=== PATIENT | female | born 1940 | race Caucasian/White ===

== ENCOUNTER 2024-01-29 09:25 | Emergency (ER) | payer MEDICARE, BC, SELFPAY ==
[2024-01-29 09:35] VITALS: BP 115/57
--- NOTE | 2024-01-29 09:42 | ED.GENMED ---
History of Present Illness
General
Chief Complaint: Fall
Time Seen by Provider: 01/29/24 09:31
History of Present Illness
History of Present Illness:
Patient presents to the emergency department after fall. She is an 83-year-old female with a history of severe aortic stenosis, uncontrolled diabetes, coronary artery disease. She presents after a mechanical fall. She reports that her daughter
was helping her transfer from the toilet to the shower. She reports that the shower chair broke and she fell to the floor of the shower. She denies getting injured. She reports that her daughter was unable to lift her up and called the medics.
Patient currently has no complaints. She denies pain anywhere. She denies shortness of breath. She denies injury. She wants to go home
Past History
Past History
ED Past Medical History: CHF and IDDM
ED Past Surgical History: Orthopedic
Social History
Tobacco: Non-smoker
Alcohol: None
Drug: None
Living: with family
Employment: Retired
Phy Exam
Physical Exam
Physical Exam:
GENERAL APPEARANCE: NAD, chronically ill appearing
EYES lids/conjunctiva normal
EARS/NOSE/THROAT Mucous membranes moist, uvula midline without oral pharyngeal erythema, exudate or swelling
HEAD/NECK normocephalic atraumatic, neck is supple.
RESPIRATORY respiratory effort normal, speaks in full sentences, no accessory muscle use. Lungs clear to auscultation without rhonchi, wheezes, rales
CARDIAC Regular rate and rhythm, no edema.
ABDOMINAL Soft, ND/NT. No pulsatile masses on exam, rebound tenderness
MUSCLES/EXTREMITIES No abnormal range of motion, no swelling. no bruising
SKIN Warm, pink and dry. No rashes
NEUROLOGICAL Speech is clear and appropriate. Normal level of consciousness. 5/5 strength in all extremities.
PSYCH Normal mood and affect. Judgement/competence is appropriate
Course
Orders/Labs/Results
Orders:
Orders
01/29/24 10:21
Pt Eval And Treat Urgent
Treatment: ambulate, assess for home safety.
Activity Level: As Tolerated
Vital Signs
Initial and Last Documented VS:
Initial Vital Signs
Temp Pulse Resp BP Pulse Ox
97.6 F 59 16 115/57 97
01/29/24 09:35 01/29/24 09:35 01/29/24 09:35 01/29/24 09:35 01/29/24 09:35
Last Documented Vital Signs
Temp Pulse Resp BP Pulse Ox
97.6 F 59 16 115/57 94
01/29/24 09:35 01/29/24 09:35 01/29/24 09:35 01/29/24 09:35 01/29/24 10:15
*Critical Care Note
Total Time (30-74mins, 75-104mins- exclusive of procedures): Not Applicable
Update Note
Update Note:
Patient's daughter arrived to the emergency department. I discussed with the history with her. She helps take care of her mother at home. The patient currently has no complaints however the daughter is worried about her mobility. We will consult
physical therapy to work with the patient to ensure that patient is at her baseline mobility status before sending her home.
Patient was evaluated by physical therapy. She was able to stand up to a walker and lift both of her legs up. She still denies any pain or symptoms and wants to go home. Daughter is in agreement with plan
ED Attending Note
-
Portions of this chart may have been created with voice recognition software.� Occasional wrong word or��sound alike� substitutions may have occurred due to the inherent limitations of voice recognition software.
Discharge Plan
Departure
Patient Disposition: Home (Routine Discharge)
Date of Disposition: 01/29/24
Time of Disposition: 10:52
Patient with high blood pressure during this ER visit?: No
Discharge Problem:
Fall
Instructions: Preventing falls in adults
Prescriptions:
No Action
gabapentin 400 mg capsule
400 mg PO TID
aspirin 81 mg Tablet,Delayed Release (Dr/Ec)
81 mg PO DAILY
acetaminophen 500 mg Tablet
500 mg PO HS
levothyroxine 125 mcg tablet
125 mcg PO DAILY
timolol maleate 0.5 % drops
1 drp BOTH EYES DAILY
ondansetron 4 mg tablet,disintegrating
4 mg translingual BIDPRN PRN (Reason: nausea/vomiting)
furosemide [Lasix] 40 mg tablet
40 mg PO DAILY Qty: 30 0RF
Rx Instructions:
alternates with 20 mg every other day
Levemir FlexPen 100 unit/mL (3 mL) Insulin Pen
40 unit SC QPM
nitroglycerin 0.4 mg Tablet, Sublingual
0.4 mg sublingual [id number] PRN (Reason: Chest pain) Qty: 25 4RF
metoprolol succinate 25 mg Tablet Extended Release 24 Hr
25 mg PO DAILY Qty: 1 0RF
insulin glargine [Basaglar KwikPen U-100 Insulin] 100 unit/mL (3 mL) Insulin Pen
40 unit SC DAILY
Referrals:
UNKNOWN - PT DOES,NOT KNOW [Family Provider] -
Interventions
Interventions:
*Risk Screen - Suicide Last Done: 01/29/24 09:36
*General Assessment Last Done: 01/29/24 11:30
*Neglect/Abuse Screening Last Done: 01/29/24 09:36
*ED COVID-19 Vaccine History Last Done: 01/29/24 11:30
ED-Musculoskeletal Assessment Last Done: 01/29/24 09:50
ED- Neurological Assessment Last Done: 01/29/24 09:50
ED-Skin Assessment Last Done: 01/29/24 09:50
Discharge Date and Time
Print Language: ITALIAN
[2024-01-29 10:49] VITALS: BP 105/62; PULSE 57; O2SAT 95
[2024-01-29 16:51] VITALS: BP 122/84
== END 2024-01-29 16:53 | disposition home or self-care (01) ==
LOC: EMR 09:25
PROVIDERS: EMERGENCY PHYSICIAN Emergency Medicine
DX: Z04.3 Encounter for examination and observation following other accident (principal); W07.XXXA Fall from chair, initial encounter; Y93.89 Activity, other specified; I25.10 Atherosclerotic heart disease of native coronary artery without angina pectoris; E11.9 Type 2 diabetes mellitus without complications; I35.0 Nonrheumatic aortic (valve) stenosis; I50.9 Heart failure, unspecified; Z79.4 Long term (current) use of insulin
CPT/HCPCS: 99283

== ENCOUNTER 2024-09-02 16:05 | Inpatient (IN) | payer MEDICARE, BC, SELFPAY ==
[2024-09-02 12:20] VITALS: BP 92/78
--- NOTE | 2024-09-02 12:48 | ED.GENMED ---
History of Present Illness
General
Chief Complaint: Skin Problem
Source: patient and family
Exam Limitations: none
Time Seen by Provider: 09/02/24 12:40
Nursing documentation reviewed up to this point in time: agreed with
History of Present Illness
History of Present Illness:
84-year-old female with a past medical history of hypertension, hyperlipidemia, CAD, CHF, aortic stenosis, diabetes, hypothyroidism who presents to the emergency room for evaluation of redness and swelling of the right lower extremity as well as a
wound on her right medial foot. Patient is accompanied by her daughter who helps with collateral history. Apparently swelling in the bilateral legs started to increase about 2 weeks ago. Daughter says that she increased patient's dose of Lasix
from 40 mg to 60 mg which helped a bit with the swelling in the left leg but right leg has remained swollen. She has developed a wound on the medial right foot. She has developed redness of the foot and ankle on the right. Was started on Keflex
by PCP and has been on 500 mg 3 times daily; she has 1 day remaining in this course of antibiotics but has not noticed any improvement in redness or swelling of the right leg which prompted ER visit. Patient has chronic dyspnea no worse than usual.
No fevers or chills. No other complaints reported.
Past History
Past History
ED Past Medical History: CHF and IDDM
ED Past Surgical History: Orthopedic
Social History
Tobacco: Non-smoker
Alcohol: None
Drug: None
Living: with family
Employment: Retired
Review of Systems
Review of Systems
All Other Systems: ROS reviewed and negative except as documented in HPI and ROS
Constitutional: Denies fever or chills
Respiratory: Denies trouble breathing (Chronic and unchanged)
Cardiac: Denies chest pain
Musculoskeletal: Reports edema
Skin: Reports other (Wound, redness)
Phy Exam
Physical Exam
Physical Exam:
General: Awake, alert; no acute distress
Head: Normocephalic, atraumatic
Eyes: Conjunctiva normal
Throat: Airway intact, handling secretions
Neck: Trachea midline, no JVD noted
Lungs: Clear to auscultation bilaterally, no wheezing, rales, rhonchi
Heart: Regular rate and rhythm, systolic murmur
Neuro: No gross deficits
Extremities: Patient has +2 pitting edema in the right lower extremity, trace edema left lower extremity; she has good pulses throughout specifically has strong femoral, popliteal, DP pulse in the right lower extremity; patient has wound medial
aspect of the right foot essentially overlying the medial aspect of the MTP joint�wound is superficial ulceration approximately 6 cm diameter; there is a wide area of erythema extending over essentially the entire dorsum of the right foot and some
slight streaks up towards the ankle/lower leg on the right; no skin changes or wounds noted on the left lower extremity
Scores
Heart Failure Risk
Heart Failure Risk Score: Not Applicable
Heart Score for Chest Pain Patients
STEMI patient?: Not applicable
Withdrawal Assessment of Alcohol
Withdrawal Assessment Completed?: Not applicable
Course
Orders/Labs/Results
Orders:
Orders
09/02/24 12:42
US Periph Venous LOWER Ext Joe Urgent
Comment:
Reason For Exam: b/l R>L swelling; RLE redness
09/02/24 13:32
CRP [C-Reactive Protein] Urgent
Complete Blood Count/With Diff Urgent
Comprehensive Metabolic Panel Urgent
ESR [Erythrocyte Sed Rate] Urgent
Lactate Level [Lactic Acid] Urgent
NT-proBNP Urgent
Blood Culture Q30M
FRANCIS Source: Blood/Venous
Specimen Description:
Blood Culture Q30M
FRANCIS Source: Blood/Venous
Specimen Description:
09/02/24 14:43
Piperacillin/Tazo 3.375 Gram [Zosyn] 3.375 gram in 50 ml IV NOW
Vancomycin [Vancocin] 2,000 mg 0.9% Sodium Chloride 500 ml [Nss] 500 ml IV NOW
Abnormal Lab Results
09/02/24
13:32
RBC 3.88 L 10^6/uL
(4.20-5.40)
Hgb 11.6 L g/dL
(12.0-16.0)
Hct 35.9 L %
(37.0-47.0)
MCHC 32.3 L g/dL
(33.0-37.0)
Lymphocytes % 14.3 L %
(20.5-51.1)
ESR 29 H mm/hour
(0-20)
Sodium 134 L mmol/L
(135-145)
Chloride 97 L mmol/L
(98-107)
Carbon Dioxide 31 H mmol/L
(22-30)
BUN 45 H mg/dl
(7-17)
Creatinine 1.3 H mg/dL
(0.6-1.0)
Glucose 270 H mg/dl
(70-99)
Alkaline Phosphatase 141 H U/L
(38-126)
C-Reactive Protein 17.00 H mg/L
(0.0-10.00)
09/02/24 13:32
09/02/24 13:32
Vital Signs
Initial and Last Documented VS:
Initial Vital Signs
Temp Pulse Resp BP Pulse Ox
36.4 C 75 18 92/78 99
09/02/24 12:20 09/02/24 12:20 09/02/24 12:20 09/02/24 12:20 09/02/24 12:20
Last Documented Vital Signs
Temp Pulse Resp BP Pulse Ox
36.4 C 75 18 92/78 99
09/02/24 12:20 09/02/24 12:20 09/02/24 12:20 09/02/24 12:20 09/02/24 12:20
MDM/Problems Addressed
Differential Diagnosis Includes:
DVT, cellulitis, CHF, dependent edema
MDM/Problems Addressed:
84-year-old female presents with persistent swelling particular in the right lower extremity as well as wound and erythema of the right foot and ankle. Symptoms started 2 weeks ago, left leg improved with increased Lasix dose but right leg still
swollen, has wound and erythema as noted above. Patient finishing up a course of Keflex but not noticing improvement. Vitals and exam as above. Will place IV send labs including a CBC and a CMP, ESR/CRP. Check ultrasound of the legs. Reassess
after the above.
Ultrasound negative for DVT bilaterally. CBC shows marginal anemia, CMP shows hyperglycemia glucose 270. CKD creatinine is 1.3. CRP is elevated. Discussed with patient and daughter who is a nurse practitioner. Given failure of outpatient oral
antibiotic this past week we will plan to admit for IV antibiotics. Discussed case with hospitalist.
Chronic conditions affecting care:
CHF, aortic stenosis, insulin-dependent diabetes
*Radiology
Radiology exam reviewed: radiology read reviewed
*Pulse Oximetry
Patient hypoxic: no
*Critical Care Note
Total Time (30-74mins, 75-104mins- exclusive of procedures): Not Applicable
Data Reviewed
Source: patient and family
ED Attending Note
-
Portions of this chart may have been created with voice recognition software.� Occasional wrong word or��sound alike� substitutions may have occurred due to the inherent limitations of voice recognition software.
Discharge Plan
Departure
Patient Disposition: Admit
Date of Disposition: 09/02/24
Time of Disposition: 14:43
Admit to doctor: Malvin
Presentation/result/management discussed w/ accepting MD/DO: Hospitalist
Discharge Problem:
Cellulitis
Prescriptions:
No Action
gabapentin 400 mg capsule
800 mg PO DAILY
aspirin 81 mg Tablet,Delayed Release (Dr/Ec)
81 mg PO DAILY
acetaminophen 500 mg Tablet
1,000 mg PO BID
levothyroxine 125 mcg tablet
125 mcg PO DAILY
timolol maleate 0.5 % drops
1 drp BOTH EYES DAILY
furosemide [Lasix] 40 mg tablet
40 mg PO DAILY Qty: 30 0RF
metoprolol succinate 25 mg Tablet Extended Release 24 Hr
25 mg PO DAILY Qty: 1 0RF
insulin glargine [Basaglar KwikPen U-100 Insulin] 100 unit/mL (3 mL) Insulin Pen
24 unit SC DAILY
atorvastatin [Lipitor] 40 mg Tablet
40 mg PO HS
repaglinide 0.5 mg Tablet
0.5 mg PO DAILY
cephalexin 500 mg Capsule
500 mg PO Q8H
gabapentin 400 mg Capsule
400 mg PO HS
Referrals:
Lidya Vagras MD [Family Provider] -
Interventions
Interventions:
*Risk Screen - Suicide Last Done: 09/02/24 12:20
*General Assessment Last Done: 09/02/24 12:20
*Neglect/Abuse Screening Last Done: 09/02/24 12:28
*ED- Fall Risk Assessment Last Done: 09/02/24 12:28
*ED COVID-19 Vaccine History Last Done: 09/02/24 12:20
ED-Skin Assessment Last Done: 09/02/24 12:28
Discharge Date and Time
Print Language: BENGALI
[2024-09-02 13:57] LABS: % Basophils 0.5 % (0-2); % Immature Granulocytes 0.4 % (0-0.5); % Lymphocytes 14.3 % (20.5-51.1); % Monocytes 7.9 % (1.7-9.3); % Neutrophils 74.9 % (42.2-75.2); Absolute Eosinophils 0.2 10^3/uL (0-0.7); Absolute Lymphocytes 1.2 10^3/uL (1.2-3.4); Absolute Monocytes 0.6 10^3/uL (0.1-0.6); Hematocrit 35.9 % (37.0-47.0); Hemoglobin 11.6 g/dL (12.0-16.0); Mean Corp Hgb Conc. 32.3 g/dL (33.0-37.0); Mean Corpuscular Hgb 29.9 pg (27.0-31.0); Mean Corpuscular Volume 92.5 fL (81.0-99.0); Mean Platelet Volume 9.2 fL (7.4-10.4); Nucleated Red Blood Cells % 0 %; Platelet Count 313 10^3/uL (130-400); Red Blood Cell Count 3.88 10^6/uL (4.20-5.40)
[2024-09-02 14:03] LABS: Lactic Acid 1.3 mmol/L (0.7-2.0)
[2024-09-02 14:13] LABS: ALT (SGPT) 17 U/L (0-35); AST (SGOT) 21 U/L (14-36); Albumin 3.8 g/dl (3.5-5.0); Alkaline Phosphatase 141 U/L (38-126); Blood Urea Nitrogen 45 mg/dl (7-17); Calcium 9.4 mg/dl (8.4-10.2); Carbon Dioxide 31 mmol/L (22-30); Chloride 97 mmol/L (98-107); Glucose 270 mg/dl (70-99); Potassium 5.1 mmol/L (3.5-5.1); Sodium 134 mmol/L (135-145); Total Bilirubin 0.6 mg/dl (0.2-1.3)
[2024-09-02 14:22] LABS: NT-proBNP 14900 pg/ml
[2024-09-02 14:40] LABS: Erythrocyte Sed Rate 29 mm/hour (0-20)
--- NOTE | 2024-09-02 14:41 | HPS.HSE ---
Family Physician
-
Family Physician: Lidya Vargas
Chief Complaint
-
Right lower extremity swelling, redness, wound
History of Present Illness
84-year-old female with a past medical history of hypertension, hyperlipidemia, CAD, CHF, aortic stenosis, diabetes, hypothyroidism who presents to the emergency room for evaluation of redness and swelling of the right lower extremity as well as a
wound on her right medial foot. Patient was noted to have bilateral lower extremity swelling for past 2 weeks. Daughter says that she increased patient's dose of Lasix from 40 mg to 60 mg for 3 days last Saturday, which helped a bit with the
swelling in the left leg but right leg has remained swollen. She has developed a wound on the medial right foot from transferring herself from bed to the chair. she has developed redness of the foot and ankle on the right. Was started on Keflex
by PCP and has been on 500 mg 3 times daily, last she has 1 day remaining in this course of antibiotics but has not noticed any improvement in redness or swelling of the right leg which prompted ER visit. Patient has chronic dyspnea no
worse than usual. No fevers or chills. Patient denied any headache, dizzy or syncope. Patient denied chest pain. Patient denied any weight gain. Patient denied any abdominal pain, nausea, vomiting or diarrhea. Patient denied dysuria,
hematuria.
Duplex negative for DVT. Patient received a dose of Vanco Zosyn in ER admitting for further management.
Medical History
Past Medical History
Past Medical History: Reports Other
Additional Past Medical History:
Coronary artery disease
Ischemic cardiomyopathy
Aortic stenosis
CKD
Hypothyroidism
Type 2 diabetes
CHF
Past Surgical History: Reports Other
Additional Past Surgical History:
Cardiac cath
Back surgery
Social History
Tobacco: Non-smoker
Alcohol: None
Drug: None
Family History
Family History: Not pertinent
Allergies / Home Medications
Allergies reflects when Allergies were last updated in [facility].
Home Medications with original date entered in [facility]
Allergy/Medication List:
Allergies
Allergy/AdvReac Type Severity Reaction Status Date / Time
No Known Allergies Allergy Verified 09/02/24 12:23
Home Medications
acetaminophen 500 mg tablet 1,000 mg PO BID Pain 04/17/23
aspirin 81 mg tablet,delayed release 81 mg PO DAILY Blood Clot Prevention/Tx 04/17/23
gabapentin 400 mg capsule 800 mg PO DAILY Neurological Condition 04/17/23
levothyroxine 125 mcg tablet 125 mcg PO DAILY Thyroid 04/17/23
timolol maleate 0.5 % eye drops 1 drp BOTH EYES DAILY Eye Condition 04/17/23
furosemide 40 mg tablet (Lasix) 40 mg PO DAILY #30 tabs 04/20/23
metoprolol succinate 25 mg tablet,extended release 24 hr 25 mg PO DAILY Heart disease/condition #1 tab 05/18/23
insulin glargine 100 unit/mL (3 mL) subcutaneous pen (Basaglar KwikPen U-100 Insulin) 24 unit SC DAILY 01/29/24
atorvastatin 40 mg tablet (Lipitor) 40 mg PO HS 09/02/24
cephalexin 500 mg capsule 500 mg PO Q8H for 7 days 09/02/24
gabapentin 400 mg capsule 400 mg PO HS 09/02/24
repaglinide 0.5 mg tablet 0.5 mg PO DAILY 09/02/24
Review of Systems
-
Constitutional: Reports No Symptoms
EENT: Reports No Symptoms
Respiratory: Reports No Symptoms
Cardiac: Reports No Symptoms
Abdomen/GI: Reports No Symptoms
: Reports No Symptoms
Musculoskeletal: Reports No Symptoms
Skin: Reports Other (Right foot wound, redness, swelling)
Neurological: Reports No Symptoms
Endocrine: Reports No Symptoms
Hematologic/Lymphatic: Reports No Symptoms
Psych: Reports No Symptoms
Physical Exam
Vital Signs
Vital Signs
Temp Pulse Resp BP Pulse Ox
97.5 F 75 18 92/78 99
09/02/24 12:20 09/02/24 12:20 09/02/24 12:20 09/02/24 12:20 09/02/24 12:20
Physical Exam
General: Well Developed, Well Nourished and No Apparent Distress
HEENT: NormoCephalic, Moist mucous membranes and Atraumatic
Respiratory: Clear
Cardiac: S1/S2 and Regular Rhythm; No Murmur or Rub
GI: Soft, Non Tender, Non Distended and Normal Bowel Sounds; No Organomegaly
Rectal: Deferred by Provider
Musculoskeletal: No Clubbing, No Cyanosis and Other (+2 pitting edema of the right lower extremities, trace edema of the left lower extremities)
Skin: Rash and Other (Patient has wound medial aspect of the right foot)
Neuro: AO x 3 and Nonfocal/grossly intact
Psych: Calm
Laboratory Results
-
09/02/24 13:32
09/02/24 13:32
Laboratory Results
Lactic Acid 1.3 mmol/L (0.7-2.0) 09/02/24 13:32
Total Bilirubin 0.6 mg/dl (0.2-1.3) 09/02/24 13:32
AST 21 U/L (14-36) 09/02/24 13:32
ALT 17 U/L (0-35) 09/02/24 13:32
Alkaline Phosphatase 141 U/L (38-126) H 09/02/24 13:32
Data Reviewed
-
Lab Data: Labs Reviewed by me
Impression/Plan
-
# Right leg infected wound/cellulitis
-Failed outpatient oral antibiotic therapy
-Ultrasound negative for DVT
-IV vancomycin and Zosyn in ER
-Blood culture sent from ER
-obtain x ray of right LE
-podiatry consulted
-wound care consulted
-PT
# Anemia of chronic disease
-Hemoglobin stable at 11.6
-No active bleeding
-Continue to monitor
# CKD stage IIIb
-Creatinine 1.3
-Continue to monitor
# Type 2 diabetes with hyperglycemia
# History of gastroparesis
# Diabetic peripheral neuropathy
-Gabapentin continued
-Glargine 24 units at bedtime
-Hold repaglinide
# Hypothyroidism
-Levothyroxine continued
#Severe aortic stenosis
# Hyperlipidemia
-Statin
# History of congestive heart failure
-Lasix from home continued
-Strict FELIX, daily weight
#hxt of Hypertension
�-Metoprolol continued
-BP soft in ER.
#Morbid Obesity due to excess calories
�- Affects all aspects of care.
�- Encourage healthy diet and activity as able with goal of weight loss.
#Ambulatory Dysfunction
Wheelchair Bound
�- Likely multifactorial with DDD / multiple prior back surgeries, morbid obesity, neuropathy, etc.
�- PT / OT evaluations during stay.
#DVT Prophylaxis:� heparin sq
#CODE status
-DNR
[2024-09-02 14:57] VITALS: BMI 36.2
[2024-09-02 15:09] VITALS: BP 92/64
[2024-09-02] MEDS: ZOSYN 50 IV ×2 (15:09→21:45)
[2024-09-02 15:11] VITALS: BP 92/64
--- NOTE | 2024-09-02 15:36 | W.PN.UPDATE ---
Update Note
Progress Note Update
This is an addendum to the H&P written by Janette Vides on 09/02/2024. Patient seen examined independently with [employer]
84-year-old female past medical history of CAD, HFrEF, severe aortic stenosis, mild to moderate mitral regurgitation, CKD, type 2 diabetes, diabetic gastroparesis, hyperlipidemia, obesity, chronic ambulatory dysfunction, presenting with swelling
bilaterally but worse in the right foot for 2 weeks with right medial foot wound developing 1 week ago without improvement with Keflex.
Blood pressure 90s.
Wound appears shallow, there is an ulceration approximately 6 cm over the medial aspect of the plantar surface of the foot with surrounding cellulitis.
Labs show creatinine of 1.3 which is stable. Venous ultrasound shows no evidence of DVT. Cardiac BNP of 15,000. Elevated inflammatory markers. Blood sugar 270.
Check blood cultures, vancomycin/Zosyn. Check x-ray foot. Podiatry consulted.
Patient with blood pressure 90s, likely secondary to underlying cardiomyopathy rather than sepsis. Hold off on IV fluids as she is volume overloaded without hypoxemia.
[2024-09-02] MEDS: VANCOCIN 540 MG IV (15:37)
--- NOTE | 2024-09-02 15:37 | W.PN.UPDATE ---
Update Note
Progress Note Update
This is an addendum to the H&P written by Janette Vides on 09/02/2024. Patient seen examined independently with [employer]
84-year-old female past medical history of CAD, HFrEF, severe aortic stenosis, mild to moderate mitral regurgitation, CKD, type 2 diabetes, diabetic gastroparesis, hyperlipidemia, obesity, chronic ambulatory dysfunction, presenting with swelling
bilaterally but worse in the right foot for 2 weeks with right medial foot wound developing 1 week ago without improvement with Keflex.
Blood pressure 90s.
Wound appears shallow, there is an ulceration approximately 6 cm over the medial aspect of the plantar surface of the foot with surrounding cellulitis.
Labs show creatinine of 1.3 which is stable. Venous ultrasound shows no evidence of DVT. Cardiac BNP of 15,000. Elevated inflammatory markers. Blood sugar 270.
Check blood cultures, vancomycin/Zosyn. Check x-ray foot. Podiatry consulted.
Patient with blood pressure 90s, likely secondary to underlying cardiomyopathy rather than sepsis. Hold off on IV fluids as she is volume overloaded without hypoxemia.
[2024-09-02 17:29] VITALS: BMI 37.1
[2024-09-02 17:30] VITALS: BP 113/61
[2024-09-02 17:50] LABS: Glucose - Point of Care 162 mg/dl (70-99)
[2024-09-02] MEDS: NOVOLOG FLEXPEN-LOW RESISTANCE 1 UNITS SC (18:27)
[2024-09-02 18:40] VITALS: BMI 37.1
[2024-09-02 19:00] VITALS: BP 115/65
--- NOTE | 2024-09-02 19:13 | PHA.VAN.IN ---
Assessment
- Assessment
Renal Function: Appears similar to baseline (05/18/23 BAELINE SCR: 1.3)
Concomitant Antimicrobials: ZOSYN
- Previous Dosing Experience
Previous Regimen: NONE
AUC Dosing Plan
- Dosing Variables
Dosing Weight (kg): 89.1
Dosing CrCl (ml/min): 33
Vd coefficient (L/kg): 0.6
- Empiric Dosing
Initial / Loading Dose: 2GM
Maintenance Regimen: 750MG IV Q24H
Estimated AUC (mcg*h/mL): 448
Estimated Peak (mcg*h/mL): 26.3
Estimated Trough (mcg/ml): 12.7
Estimated Half Life (H): 21.8
Pharmacokinetics Vancomycin I
- -
Patient Age: 84
Patient Sex: Female
Vancomycin Day #: 1
Indication: Skin And Soft Tissue ([R] LEG WOUND/CELLULITIS)
Requesting Provider: ELIANE
Height / Weight:
Height 5 ft 1 in
Actual Weight 89.131 kg
Pertinent Past Medical History: FAILED OUPT [place]; DM
- Vital Signs / Lab Results
Temp Pulse Resp BP Pulse Ox
97.7 F 75 20 113/61 98
09/02/24 17:30 09/02/24 17:30 09/02/24 17:30 09/02/24 17:30 09/02/24 17:30
Lab Results - Hematology
09/02/24
13:32
WBC 8.0
Lab Results - Chemistry
09/02/24
13:32
BUN 45 H
Creatinine 1.3 H
Albumin 3.8
09/02/24
13:32
Lactic Acid 1.3
[2024-09-02] MEDS: HEPARIN 5000 UNITS SC (21:44)
[2024-09-02] MEDS: NEURONTIN 400 MG PO (21:45)
[2024-09-02] MEDS: LIPITOR 40 MG PO (21:45)
[2024-09-02] MEDS: DESENEX/MITRAZOL/ZEASORB 1 APPLIC TOPICAL (21:46)
[2024-09-02] MEDS: TYLENOL 650 MG PO (21:47)
[2024-09-02 21:55] LABS: Glucose - Point of Care 260 mg/dl (70-99)
[2024-09-02 23:05] VITALS: BP 113/55
[2024-09-03] VITALS (8 sets, daily range): BP systolic 95–130; BP diastolic 46–71; PULSE 78; O2SAT 95; BMI 37.2
[2024-09-03] MEDS: ZOSYN 50 IV ×2 (03:20→09:05)
[2024-09-03 03:59] LABS: Urine Albumin Negative (Neg - Trace); Urine Bilirubin Negative (Negative); Urine Character Clear (Clear); Urine Color Yellow; Urine Glucose 2+ (Negative); Urine Ketone Negative (Negative); Urine Leukocyte Negative (Negative); Urine Nitrite Negative (Negative); Urine Occult Blood Negative (Negative); Urine Specific Gravity 1.015 (<1.030); Urine Urobilinogen Negative (Neg - 1+)
[2024-09-03] MEDS: SYNTHROID 125 MCG PO (05:40)
[2024-09-03] MEDS: VANCOCIN 150 IV (05:40)
[2024-09-03] MEDS: NOVOLOG FLEXPEN-LOW RESISTANCE 2 UNITS SC (05:51)
[2024-09-03 05:55] LABS: Glucose - Point of Care 205 mg/dl (70-99)
[2024-09-03 07:15] LABS: Hematocrit 32.9 % (37.0-47.0); Hemoglobin 10.9 g/dL (12.0-16.0); Mean Corp Hgb Conc. 33.1 g/dL (33.0-37.0); Mean Corpuscular Hgb 29.3 pg (27.0-31.0); Mean Corpuscular Volume 88.4 fL (81.0-99.0); Mean Platelet Volume 9.2 fL (7.4-10.4); Platelet Count 297 10^3/uL (130-400); Red Blood Cell Count 3.72 10^6/uL (4.20-5.40); Red Cell Dist. Width 13.9 % (11.5-14.5); White Blood Cell Count 7.8 10^3/uL (4.8-10.8)
[2024-09-03 07:40] LABS: Blood Urea Nitrogen 41 mg/dl (7-17); Calcium 9.1 mg/dl (8.4-10.2); Carbon Dioxide 26 mmol/L (22-30); Chloride 102 mmol/L (98-107); Estimated Creatinine Clearance 36 ml/min; Glucose 225 mg/dl (70-99); Potassium 4.3 mmol/L (3.5-5.1); Sodium 135 mmol/L (135-145); eGFR 44.91
--- NOTE | 2024-09-03 08:14 | PHA.VAN.FU ---
Vancomycin Assessment / Plan
- Assessment
Renal Function: SCR Decreasing
WBC's are: WNL
In the past 24 hrs, patient has been: Afebrile
Concomitant Antimicrobials: piperacillin/tazobactam
- Dosing Plan
Continue: Vanc 750mg Q24H
- Monitoring Plan
No level(s) ordered at this time: follow SCR trend - may require renal dose adjustment
Monitoring Comments: may consider adjusting to dose by level
- Follow Up
Pharmacy will continue to follow.
Vancomycin Follow UP
- -
Patient Age: 84
Patient Sex: Female
Vancomycin Day #: 2
Indication: Skin And Soft Tissue
Requesting Provider: Laxmi Vides
Pertinent Antimicrobial Allergies:
NKDA
Height / Weight:
Height 5 ft 1 in
Actual Weight 89.358 kg
Pertinent Past Medical History: BMI ~37, DM 2, CKD, ambulatory dysfunction
- Vital Signs / Lab Results
Temp Pulse Resp BP Pulse Ox
98.1 F 75 17 113/59 96
09/03/24 07:23 09/03/24 07:23 09/03/24 07:23 09/03/24 07:23 09/03/24 07:23
Lab Results - Hematology
09/02/24 09/03/24
13:32 06:48
WBC 8.0 7.8
Lab Results - Chemistry
09/02/24 09/03/24
13:32 06:48
BUN 45 H 41 H
Creatinine 1.3 H 1.2 H
Estimated Creat Clear 36
Albumin 3.8
09/02/24
13:32
Lactic Acid 1.3
Lab Results - Urine
09/03/24
03:32
Urine Nitrite (Reflex) Negative
Leukocyte Esterase Rfl Negative
[2024-09-03] MEDS: TOPROL XL 25 MG PO (08:53)
[2024-09-03] MEDS: LASIX 40 MG PO (08:53)
[2024-09-03] MEDS: HEPARIN 5000 UNITS SC ×2 (08:53→20:15)
[2024-09-03] MEDS: TIMOPTIC 0.5% OPHTHALMIC SOLUTION 1 DROP BOTH EYES (08:53)
[2024-09-03] MEDS: ASPIR LOW (ENTERIC COATED) 81 MG PO (08:54)
[2024-09-03] MEDS: NEURONTIN 400 MG PO ×2 (08:54→20:17)
[2024-09-03 09:04] LABS: Glucose - Point of Care 219 mg/dl (70-99)
[2024-09-03] MEDS: LANTUS 0.24 UNITS SC (09:04)
[2024-09-03] MEDS: DESENEX/MITRAZOL/ZEASORB 1 APPLIC TOPICAL ×2 (09:07→20:18)
--- NOTE | 2024-09-03 10:32 | CM ---
Patient seen at bedside with physician. Patient daughter joaquín on phone, . CM Called to patient daughter and left message after visit with patient. Patient PCP is Dr. Vargas and she confirmed that she was living with her daughter and son
in law in a 2 story home. patient uses rolling walker and wheelchair but primarily wheelchair. Patient noted to use [facility] in [place]. Patient states that her physicians come to her but she is not sure what agency they come from. CM will continue to
follow for discharge planning needs.
Plan; home with VN vs SNF; watch for functional status/medical treatment plan.
--- NOTE | 2024-09-03 10:44 | W.PN.HOSP.TC ---
Today's Communication/Plan
-
consult ID
follow cultures
start flomax
follow urine output for retention
Assessment / Plan
Assessment / Plan
pt is an 84 year old female
Right leg infected wound/cellulitis due to diabetes with neuropathy--failed outpt ABX--apprec podiatry--MRI neg for osteo--cont vanco/zosyn--Ultrasound negative for DVT--consult ID--follow cultures--apprec wound care
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
Type 2 diabetes with hyperglycemia/gastroparesis/neuropathy--cont insulin, SSI, gabapentin--restart oral meds
Anemia of chronic disease--Hemoglobin stable at 11.6--No active bleeding
CKD stage IIIb--Creatinine 1.3--renal dose meds
Hypothyroidism--Levothyroxine continued
Hyperlipidemia--Lipitor
History of congestive heart failure with preserved EF--no exacerbation--Lasix from home continued--Strict I/O, daily weight
Essential Hypertension--Metoprolol continued
Morbid Obesity due to excess calories-- Affects all aspects of care�- Encourage healthy diet and activity as able with goal of weight loss.
Ambulatory Dysfunction/Wheelchair Bound--Likely multifactorial with DDD/multiple prior back surgeries, morbid obesity, neuropathy, etc.�- PT/OT evaluations during stay
Severe aortic stenosis
DVT Proph--heparin sq
CODE status--DNR
Anticipated Discharge: > 48 hours
Subjective/Interval History
-
Date of Service: September 03, 2024
pt with significant neuropathy--states that she cannot feel anything with her foot--nursing reports urinary retention
Objective Data
-
Labs:
Laboratory Results
09/03/24
06:48
WBC 7.8
Hgb 10.9 L
Hct 32.9 L
Plt Count 297
Sodium 135
Potassium 4.3
Chloride 102
Carbon Dioxide 26
BUN 41 H
Creatinine 1.2 H
Glucose 225 H
Calcium 9.1
Vital Signs:
max temp for 24 hours
09/03/24
07:23
Temp 98.1 F
Vital Signs
Temp Pulse Resp BP Pulse Ox
98.1 F 75 17 113/59 96
09/03/24 07:23 09/03/24 07:23 09/03/24 07:23 09/03/24 07:23 09/03/24 07:23
I&O
09/02/24 09/03/24 09/04/24
06:59 06:59 06:59
Intake Total 340 / 340
Output Total 1100 / 1100
Balance -760 / -760
Review of Systems
-
All other systems: Reviewed and negative
Physical Exam
-
General: Well Developed, Well Nourished, No Apparent Distress and Appears Chronically Ill
HEENT: Normocephalic and Atraumatic
Respiratory: Clear to Auscultation; Negative Wheezes or Rhonchi
Cardiac: Regular Rhythm and S1/S2; Negative Murmur
GI: Soft, Nontender, Nondistended and Normal Bowel Sounds
Musculoskeletal: No Clubbing and No Cyanosis; Negative No Edema (edema right leg--foot bandaged)
Neuro: Awake
Psych: Calm
[2024-09-03 10:47] LABS: Glycohemoglobin (HgbA1c) 8.7 % (4.0-5.6)
[2024-09-03 11:57] LABS: Glucose - Point of Care 281 mg/dl (70-99)
[2024-09-03] MEDS: FLOMAX 0.4 MG PO (12:27)
--- NOTE | 2024-09-03 13:28 | WOUNDNOTE ---
RIGHT SHOULDER EXCORIATIONS
--- NOTE | 2024-09-03 13:29 | WOUNDNOTE ---
RIGHT GROIN/ABDOMINAL FOLD
[2024-09-03] MEDS: NOVOLOG FLEXPEN-LOW RESISTANCE 3 UNITS SC ×2 (13:30→18:05)
--- NOTE | 2024-09-03 13:30 | WOUNDNOTE ---
RIGHT GROIN/ABDOMINAL FOLD
--- NOTE | 2024-09-03 13:30 | WOUNDNOTE ---
BILATERAL HEELS (BLANCHABLE RED)
--- NOTE | 2024-09-03 13:31 | WOUNDNOTE ---
RIGHT MEDIAL FOOT
--- NOTE | 2024-09-03 13:32 | WOUNDNOTE ---
RIGHT MEDIAL FOOT
--- NOTE | 2024-09-03 13:39 | WOUNDNOTE ---
[facility] RN note: Patient admitted with Right leg cellulitis
See H&P for complete history.
PMH: CAD, ischemic cardiomyopathy, aortic stenosis, CKD, hypothyroidism, type 2 diabetes CHF.
Wound Location and type/assessment: Patient admitted with full thickness wound to right medial foot. Patient injured foot when transferring from bed to chair. Patient also notably internally rotates foot. Reviewed FLORIDALMA/TBI. MRI negative for osteo.
The wound is dry, granular with 10% stable black eschar. Right medial groin/abdomen with scabbed abrasion. Patient reports this wound resulted from scratching. She also has some excoriation on her shoulders from scratching. Heels with stage 1 PI
noted on admission. Sacrum is intact. Patient reports that she transfers from bed to wheelchair daily. She demonstrates good ability to turn in bed. She stated she is continent at home but is currently unable to void. RN removed brief. She lives
with daughter who provides care.
Appetite: States good
Pressure redistribution devices in place: Versa Care with Accumax. Reviewed importance of turning and repositioning self with patient, who verbalized understanding. Right foot in fiber filled boot as recommended by Podiatry.
Plan: Right foot and groin wound cleaned with saline and covered with Honey Gel and silicone border foam. Adhesive foam to heels. Left heel off-loaded with air cushion under heel and calf. Encouraged patient to stop scratching. Will recommend
Mineral oil for excoriated skin on shoulders. Will confirm orders with hospitalist and update nurse.
Updated care plan and will follow as needed.
Note to case management of equipment requested for discharge:
Recommend follow up at wound care center upon discharge.
[2024-09-03] MEDS: HYDROPHOR 1 APPLIC TOPICAL (14:43)
--- NOTE | 2024-09-03 16:06 | CON.ID ---
Consultation
-
Date/Time Consultation Requested: 09/03/24 10:47
Date/Time Consultation Performed: 09/03/24 14:05
Requesting Provider: Dr Paez
Performing Provider: Dr Doe
Reason for Consultation: diabetic foot infection
Chief Complaint / Past History
Chief Complaint
Right lower extremity cellulitis and wounds.
History of Present Illness
Ms Danielle is an 84 year old female with history of , DM2 who [facility] with a wound on the right mid foot with associated redness, and warmth. She was started on keflex 500 mg PO TID by her PCP however without
significant improvement and presented here. No fevers or chills. Patient denied any headache, dizzy or syncope. Patient denied chest pain. Patient denied any weight gain. Patient denied any abdominal pain, nausea, vomiting or diarrhea. Patient
denied dysuria, hematuria.
Since arrival here she has been afebrile, bp overall stable, wbc 8.8, hgb 10, plt 297, na 135, cr 1.2, a1c 8.7, blood cultures x2 no growth to date, MRI with cellulitis without abscess or osteomyelitis, currently on vancomycin and zosyn. ID is
consulted for assistance with management.
Past History
Additional Past Medical History:
1. Coronary artery disease.
2. Ischemic cardiomyopathy.
3. Aortic stenosis.
4. CKD.
5. Hypothyroidism.
6. Type 2 diabetes.
7. CHF.
Additional Past Surgical History:
Cardiac cath
Back surgery
Allergy History:
No Known Allergies Allergy (Verified 09/02/24 12:23)
Medications Reviewed: Yes
Social History
Tobacco: Non-Smoker
Alcohol: None
Drug: None
Family History
Family History: Not Pertinent
Review of Systems
Review of Systems
General: Negative Fever or Chills
All systems: All other systems were reviewed and were negative
Vital Signs
Temp Pulse Resp BP Pulse Ox
97.8 F 78 18 109/58 95
09/03/24 15:18 09/03/24 15:18 09/03/24 15:18 09/03/24 15:18 09/03/24 15:18
Physical Exam
Physical Exam
Constitutional: No Acute Distress
Cardiovascular: Regular Rate and S1/S2; Negative Murmur or Rub
Pulmonary: Clear and Symmetric; Negative Wheezes, Rales or Rhonchi
Gastrointestinal: Soft, Non Tender, Non Distended and Normal Bowel Sounds
Musculoskeletal: Other (right mid foot with superficial wound with developing eschar, mild surrounding erythema; 2+ edema of the foot and leg)
Skin: Warm and Dry; Negative Rash or Jaundice
Lab / Diagnostic Study Results
09/03/24 06:48
09/03/24 06:48
Abs Immat Gran (auto) 0.0 10^3/uL (0-0.05) 09/02/24 13:32
Absolute Neuts (auto) 6.0 10^3/uL (1.4-6.5) 09/02/24 13:32
Absolute Lymphs (auto) 1.2 10^3/uL (1.2-3.4) 09/02/24 13:32
Absolute Monos (auto) 0.6 10^3/uL (0.1-0.6) 09/02/24 13:32
Absolute Basos (auto) 0.0 10^3/uL (0-0.2) 09/02/24 13:32
Immature Gran % 0.4 % (0-0.5) 09/02/24 13:32
Neutrophils % 74.9 % (42.2-75.2) 09/02/24 13:32
Lymphocytes % 14.3 % (20.5-51.1) L 09/02/24 13:32
Monocytes % 7.9 % (1.7-9.3) 09/02/24 13:32
Eosinophils % 2.0 % (0-6) 09/02/24 13:32
Basophils % 0.5 % (0-2) 09/02/24 13:32
ESR 29 mm/hour (0-20) H 09/02/24 13:32
Lactic Acid 1.3 mmol/L (0.7-2.0) 09/02/24 13:32
C-Reactive Protein 17.00 mg/L (0.0-10.00) H 09/02/24 13:32
Microbiology Results
Micro:
09/02/24 13:32 Blood Culture - Preliminary
Blood/Venous No Growth in 24 hours- Final report to follow
09/02/24 13:32 Blood Culture - Preliminary
Blood/Venous No Growth in 24 hours- Final report to follow
Assessment / Plan
Mild DM2 Foot Infection
DM2 uncontrolled
- blood cultures x2 in progress no growth to date
- MRI without evidence of abscess or osteomyelitis
- recommend tightening glucose control outpatient
- STEPHEN wraps to decrease edema
- start unasyn, can transition to augmentin tomorrow to complete a 14 day course
- follow up with podiatry.
[2024-09-03] MEDS: UNASYN IV ×2 (16:29→22:15)
--- NOTE | 2024-09-03 17:03 | PTCARENOTE ---
Pt continues to retain urine today. Straight cath done this morning for bladder scan >600. Pt scanned again this afternoon for >600. Helped onto bedside commode but still unable to void. Hospitalist made aware and order placed for bill.
[2024-09-03 17:33] LABS: Glucose - Point of Care 258 mg/dl (70-99)
[2024-09-03] MEDS: LIPITOR 40 MG PO (20:15)
[2024-09-03] MEDS: TYLENOL 650 MG PO (20:24)
[2024-09-03 21:22] LABS: Glucose - Point of Care 270 mg/dl (70-99)
[2024-09-03] MEDS: MELATONIN 5 MG PO (22:16)
[2024-09-04 03:00] VITALS: BP 98/46
[2024-09-04] MEDS: UNASYN IV ×2 (03:15→10:10)
[2024-09-04] MEDS: SYNTHROID 125 MCG PO (05:47)
[2024-09-04 06:00] VITALS: BMI 37.7
[2024-09-04 07:10] LABS: Glucose - Point of Care 157 mg/dl (70-99)
[2024-09-04 07:27] LABS: Hematocrit 32.6 % (37.0-47.0); Hemoglobin 10.8 g/dL (12.0-16.0); Mean Corp Hgb Conc. 33.1 g/dL (33.0-37.0); Mean Corpuscular Hgb 28.8 pg (27.0-31.0); Mean Corpuscular Volume 86.9 fL (81.0-99.0); Platelet Count 286 10^3/uL (130-400); Red Blood Cell Count 3.75 10^6/uL (4.20-5.40); Red Cell Dist. Width 13.9 % (11.5-14.5); White Blood Cell Count 6.9 10^3/uL (4.8-10.8)
[2024-09-04 07:40] VITALS: BP 120/53
[2024-09-04 08:03] LABS: ALT (SGPT) 14 U/L (0-35); AST (SGOT) 19 U/L (14-36); Albumin 3.7 g/dl (3.5-5.0); Alkaline Phosphatase 128 U/L (38-126); Blood Urea Nitrogen 39 mg/dl (7-17); Calcium 9.3 mg/dl (8.4-10.2); Carbon Dioxide 27 mmol/L (22-30); Chloride 99 mmol/L (98-107); Estimated Creatinine Clearance 36 ml/min; Glucose 157 mg/dl (70-99); Magnesium 1.9 mg/dl (1.6-2.3); Potassium 4.1 mmol/L (3.5-5.1); Sodium 137 mmol/L (135-145); Total Protein 6.6 g/dl (6.3-8.2); eGFR 44.91
--- NOTE | 2024-09-04 08:57 | PN.CDI ---
CDI
- -
CDI:
Physician Documentation Request
Admit Date: 09/02/24 16:05
Dear Doctor Philippe,
Please review the following and provide your response in the progress notes.
Clinical Indicators:
- 09/02 H&P update note indicates pmh HFrEF
- Home med furosemide 40mg daily, continued on admission
- 09/02/24 proBNP [id number]
- 8 lb increase in weight from 09/02 to 09/04 - 191 lbs to 199 lbs
Please provide further specificity regarding the most likely acuity of HFrEF you are evaluating, treating or monitoring.
Acute on chronic HFrEF
Chronic HFrEF
Other (please specify)
Use of terms such as suspected, likely, concern for, or probable (associated with a specific diagnosis that is being evaluated, monitored, or treated as if it exists) are acceptable and can be coded in the inpatient setting, when documented at the
time of discharge.
Thank you,
Gretel Colo RN
CDI Specialist
Please use your independent medical judgment in providing your response.
[2024-09-04] MEDS: ASPIR LOW (ENTERIC COATED) 81 MG PO (09:36)
[2024-09-04] MEDS: FLOMAX 0.4 MG PO (09:36)
[2024-09-04] MEDS: NEURONTIN 400 MG PO ×2 (09:36→21:12)
[2024-09-04] MEDS: LASIX 40 MG PO (09:36)
[2024-09-04] MEDS: TOPROL XL 25 MG PO (09:37)
[2024-09-04] MEDS: PRANDIN 0.5 MG PO (09:37)
[2024-09-04] MEDS: HEPARIN 5000 UNITS SC ×2 (09:37→19:53)
[2024-09-04] MEDS: NOVOLOG FLEXPEN-LOW RESISTANCE 1 UNITS SC (09:37)
[2024-09-04] MEDS: TIMOPTIC 0.5% OPHTHALMIC SOLUTION 1 DROP BOTH EYES (09:37)
[2024-09-04] MEDS: HYDROPHOR 1 APPLIC TOPICAL (09:39)
[2024-09-04] MEDS: LANTUS 0.24 UNITS SC (09:39)
[2024-09-04] MEDS: DESENEX/MITRAZOL/ZEASORB 1 APPLIC TOPICAL ×2 (09:40→21:12)
[2024-09-04] MEDS: TYLENOL 650 MG PO ×2 (10:12→21:16)
--- NOTE | 2024-09-04 10:49 | CM ---
CM following re: discharge planning.
Reviewed pt's chart, met with pt.
PT and OT evaluations noted - home PT/OT recommended. Pt is aware and she stated she had [facility] in the past and she is requested to make a referral to [facility]. A referral to [facility] made.
[facility] discharge instructions fax: [phone]
IMM reviewed, pt declined to sign, placed on chart, pt has a copy.
D/C plan: home with [facility] and family support.
CM will follow with discharge plan updates as hospitalization progresses
--- NOTE | 2024-09-04 10:50 | W.PN.HOSP.TC ---
Addendum entered and electronically signed by Cecille Paez MD 09/04/24 10:56:
chronic CHF--no exacerbation--cont home lasix
Original Note:
Today's Communication/Plan
-
change abx to augmentin
Assessment / Plan
Assessment / Plan
pt is an 84 year old female
pt asked me to call daughter--tried to and went to voice mail--did not leave message
Right leg infected wound/cellulitis due to diabetes with neuropathy--failed outpt ABX--apprec podiatry--MRI neg for osteo--changing vanco/zosyn to augmentin to complete 14 day course total--Ultrasound negative for DVT--apprec ID-- cultures neg
--apprec wound care
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
Type 2 diabetes with hyperglycemia/gastroparesis/neuropathy--cont insulin, SSI, gabapentin--restart oral meds
Anemia of chronic disease--Hemoglobin stable at 11.6--No active bleeding
CKD stage IIIb--Creatinine 1.3--renal dose meds
Hypothyroidism--Levothyroxine continued
Hyperlipidemia--Lipitor
History of congestive heart failure with preserved EF--no exacerbation--Lasix from home continued--Strict I/O, daily weight
Essential Hypertension--Metoprolol continued
Morbid Obesity due to excess calories-- Affects all aspects of care�- Encourage healthy diet and activity as able with goal of weight loss.
Ambulatory Dysfunction/Wheelchair Bound--Likely multifactorial with DDD/multiple prior back surgeries, morbid obesity, neuropathy, etc.�- PT/OT evaluations during stay
Severe aortic stenosis
DVT Proph--heparin sq
CODE status--DNR
Anticipated Discharge: 24 - 48 hours
Subjective/Interval History
-
Date of Service: September 04, 2024
pt without c/o
Objective Data
-
Labs:
Laboratory Results
09/04/24
06:56
WBC 6.9
Hgb 10.8 L
Hct 32.6 L
Plt Count 286
Sodium 137
Potassium 4.1
Chloride 99
Carbon Dioxide 27
BUN 39 H
Creatinine 1.2 H
Glucose 157 H
Calcium 9.3
Total Bilirubin 1.0
AST 19
ALT 14
Alkaline Phosphatase 128 H
Vital Signs:
max temp for 24 hours
09/03/24
23:00
Temp 98.8 F
Vital Signs
Temp Pulse Resp BP Pulse Ox
97.7 F 70 18 120/53 95
09/04/24 07:40 09/04/24 09:37 09/04/24 07:40 09/04/24 09:37 09/04/24 07:40
I&O
09/03/24 09/04/24 09/05/24
06:59 06:59 06:59
Intake Total 340 / 340 480 / 480
Output Total 1100 / 1100 750 / 750 1100 / 1100
Balance -760 / -760 -270 / -270 -1100 / -1100
Review of Systems
-
All other systems: Reviewed and negative
Physical Exam
-
General: Well Developed, Well Nourished, No Apparent Distress and Obese
HEENT: Normocephalic, Atraumatic and Other (? vision impaired)
Respiratory: Clear to Auscultation; Negative Wheezes or Rhonchi
Cardiac: Regular Rhythm and S1/S2; Negative Murmur
GI: Soft, Nontender, Nondistended and Normal Bowel Sounds
Musculoskeletal: No Clubbing and No Cyanosis; Negative No Edema (right leg with foot bandaged)
Neuro: Awake and Alert
Psych: Calm
[2024-09-04 11:20] LABS: Glucose - Point of Care 204 mg/dl (70-99)
[2024-09-04 11:38] VITALS: BP 101/53
[2024-09-04] MEDS: NOVOLOG FLEXPEN-LOW RESISTANCE 2 UNITS SC ×2 (12:57→18:10)
--- NOTE | 2024-09-04 13:57 | W.PN.ID1 ---
Date of Service
Date of Service: September 04, 2024
Today's Communication
- transition to augmentin 875/125 mg po BID to complete a 14 day course
- follow up with podiatry.
ID service will no longer actively follow this patient please recall for further questions
Assessment / Plan
Mild DM2 Foot Infection
DM2 uncontrolled
- blood cultures x2 in progress no growth to date
- MRI without evidence of abscess or osteomyelitis
- recommend tightening glucose control outpatient
- STEPHEN wraps to decrease edema
- transition to augmentin 875/125 mg po BID to complete a 14 day course
- follow up with podiatry.
ID service will no longer actively follow this patient please recall for further questions
Chief Complaint
-: Other (diabetic foot infection)
Subjective / Review of Systems
afebrile
bp stable
without leukocytosis
cr stable
Vital Signs / Physical Exam
Vital Signs
Vital Signs
Temp Pulse Resp BP Pulse Ox
97.8 F 62 17 101/53 97
09/04/24 11:38 09/04/24 11:38 09/04/24 11:38 09/04/24 11:38 09/04/24 11:38
Physical Exam
Constitutional: No Acute Distress
Cardiovascular: Regular Rate and S1/S2; Negative Murmur or Rub
Pulmonary: Clear and Symmetric; Negative Wheezes or Rales
Gastrointestinal: Soft, Non Tender, Non Distended and Normal Bowel Sounds
Skin: Warm and Dry; Negative Rash or Jaundice
Wound: None (superifical, much less erythema, no warmth, some swelling likely due to more proximal stephen wrap around the leg)
Objective Data
Lab Data
Lab Results
09/04/24 06:56
09/04/24 06:56
ESR 29 mm/hour (0-20) H 09/02/24 13:32
Estimated Creat Clear 36 ml/min 09/04/24 06:56
Lactic Acid 1.3 mmol/L (0.7-2.0) 09/02/24 13:32
Total Bilirubin 1.0 mg/dl (0.2-1.3) 09/04/24 06:56
AST 19 U/L (14-36) 09/04/24 06:56
ALT 14 U/L (0-35) 09/04/24 06:56
Alkaline Phosphatase 128 U/L (38-126) H 09/04/24 06:56
C-Reactive Protein 17.00 mg/L (0.0-10.00) H 09/02/24 13:32
Most recent labs reviewed.
Micro Results:
09/02/24 13:32 Blood Culture - Preliminary
Blood/Venous No Growth in 48 hours- Final report to follow
09/02/24 13:32 Blood Culture - Preliminary
Blood/Venous No Growth in 48 hours- Final report to follow
[2024-09-04 14:09] VITALS: BMI 37.7
[2024-09-04 15:30] VITALS: BP 106/55
[2024-09-04 17:14] LABS: Glucose - Point of Care 205 mg/dl (70-99)
[2024-09-04 19:00] VITALS: BP 121/59
--- NOTE | 2024-09-04 19:10 | W.PN.UPDATE ---
Update Note
Progress Note Update
Recommend heel relief shoe for right lower
extremity
local wound care per wound care nursing
Recommend
Infectious Disease consult
No collection on MRI, no intervention warrented
Will follow
[2024-09-04] MEDS: AUGMENTIN 875 MG/125 MG 1 TABLET PO (19:53)
[2024-09-04] MEDS: LIPITOR 40 MG PO (21:12)
[2024-09-04 21:31] LABS: Glucose - Point of Care 211 mg/dl (70-99)
--- NOTE | 2024-09-04 22:00 | PTCARENOTE ---
Pt with loose stools x3. Pt states she normally has loose stool and takes immodium. [facility] [employer] notified. C-diff ordered. Pt placed on enhanced precautions.
[2024-09-04 23:00] VITALS: BP 125/63
[2024-09-05] VITALS (7 sets, daily range): BP systolic 91–112; BP diastolic 46–95; BMI 37.6
[2024-09-05] MEDS: SYNTHROID 125 MCG PO (06:05)
[2024-09-05 07:40] LABS: Hematocrit 33.8 % (37.0-47.0); Mean Corp Hgb Conc. 32.5 g/dL (33.0-37.0); Mean Corpuscular Hgb 29.3 pg (27.0-31.0); Mean Corpuscular Volume 89.9 fL (81.0-99.0); Mean Platelet Volume 9.5 fL (7.4-10.4); Platelet Count 282 10^3/uL (130-400); Red Blood Cell Count 3.76 10^6/uL (4.20-5.40)
[2024-09-05 07:49] LABS: Blood Urea Nitrogen 35 mg/dl (7-17); Calcium 9.2 mg/dl (8.4-10.2); Carbon Dioxide 29 mmol/L (22-30); Chloride 100 mmol/L (98-107); Estimated Creatinine Clearance 34 ml/min; Glucose 124 mg/dl (70-99); Potassium 4.2 mmol/L (3.5-5.1); Sodium 139 mmol/L (135-145)
[2024-09-05] MEDS: TYLENOL 650 MG PO ×2 (08:18→20:12)
[2024-09-05] MEDS: NOVOLOG FLEXPEN-LOW RESISTANCE SC ×2 (08:18→12:51)
[2024-09-05] MEDS: TOPROL XL 25 MG PO (08:19)
[2024-09-05] MEDS: FLOMAX 0.4 MG PO (08:19)
[2024-09-05] MEDS: HEPARIN 5000 UNITS SC ×2 (08:19→20:12)
[2024-09-05] MEDS: ASPIR LOW (ENTERIC COATED) 81 MG PO (08:19)
[2024-09-05] MEDS: PRANDIN 0.5 MG PO (08:19)
[2024-09-05] MEDS: LANTUS 0.24 UNITS SC (08:19)
[2024-09-05] MEDS: AUGMENTIN 875 MG/125 MG 1 TABLET PO ×2 (08:19→20:12)
[2024-09-05] MEDS: HYDROPHOR 1 APPLIC TOPICAL (08:20)
[2024-09-05] MEDS: LASIX 40 MG PO (08:20)
[2024-09-05] MEDS: NEURONTIN 400 MG PO ×2 (08:20→21:35)
[2024-09-05] MEDS: TIMOPTIC 0.5% OPHTHALMIC SOLUTION 1 DROP BOTH EYES (08:20)
[2024-09-05] MEDS: DESENEX/MITRAZOL/ZEASORB 1 APPLIC TOPICAL ×2 (08:20→20:13)
[2024-09-05 08:27] LABS: Glucose - Point of Care 120 mg/dl (70-99)
--- NOTE | 2024-09-05 11:05 | W.PN.HOSP.TC ---
Today's Communication/Plan
-
spoke with daughter--still trying to d/c home today IF....1.) pt voids on her own 2.) cleared by therapy 3.) no further diarrhea or C. diff neg
Assessment / Plan
Assessment / Plan
pt is an 84 year old female
spoke with daughter--still trying to d/c home today IF....1.) pt voids on her own 2.) cleared by therapy 3.) no further diarrhea or C. diff neg
Right leg infected wound/cellulitis due to diabetes with neuropathy--failed outpt ABX--apprec podiatry--MRI neg for osteo--changing vanco/zosyn to augmentin to complete 14 day course total--Ultrasound negative for DVT--apprec ID-- cultures neg
--apprec wound care
diarrhea --once--do not suspect C. diff--likely from augmentin--follow
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
Type 2 diabetes with hyperglycemia/gastroparesis/neuropathy--cont insulin, SSI, gabapentin--restart oral meds
Anemia of chronic disease--Hemoglobin stable at 11.6--No active bleeding
CKD stage IIIb--Creatinine 1.3--renal dose meds
Hypothyroidism--Levothyroxine continued
Hyperlipidemia--Lipitor
History of congestive heart failure with preserved EF--no exacerbation--Lasix from home continued--Strict I/O, daily weight
Essential Hypertension--Metoprolol continued
Morbid Obesity due to excess calories-- Affects all aspects of care�- Encourage healthy diet and activity as able with goal of weight loss.
Ambulatory Dysfunction/Wheelchair Bound--Likely multifactorial with DDD/multiple prior back surgeries, morbid obesity, neuropathy, etc.�- PT/OT evaluations during stay
Severe aortic stenosis
DVT Proph--heparin sq
CODE status--DNR
Anticipated Discharge: Today
Subjective/Interval History
-
Date of Service: September 05, 2024
pt c/o diarrhea
Objective Data
-
Labs:
Laboratory Results
09/05/24
06:48
WBC 7.0
Hgb 11.0 L
Hct 33.8 L
Plt Count 282
Sodium 139
Potassium 4.2
Chloride 100
Carbon Dioxide 29
BUN 35 H
Creatinine 1.3 H
Glucose 124 H
Calcium 9.2
Vital Signs:
max temp for 24 hours
09/04/24
23:00
Temp 98.0 F
Vital Signs
Temp Pulse Resp BP Pulse Ox
97.6 F 75 18 101/52 98
09/05/24 07:54 09/05/24 07:54 09/05/24 07:54 09/05/24 07:54 09/05/24 07:54
I&O
09/04/24 09/05/24 09/06/24
06:59 06:59 06:59
Intake Total 480 / 480 480 / 480
Output Total 750 / 750 1750 / 1750
Balance -270 / -270 -1270 / -1270
Review of Systems
-
All other systems: Reviewed and negative
Abdomen/GI: Reports Diarrhea
Physical Exam
-
General: Well Developed, Well Nourished and No Apparent Distress
HEENT: Normocephalic, Atraumatic and Other (suspect vision impaired)
Respiratory: Clear to Auscultation
Cardiac: Regular Rhythm and S1/S2; Negative Murmur
GI: Soft, Nontender, Nondistended and Normal Bowel Sounds
Musculoskeletal: No Clubbing, No Cyanosis and No Edema
Neuro: Awake
[2024-09-05 12:51] LABS: Glucose - Point of Care 134 mg/dl (70-99)
--- NOTE | 2024-09-05 14:25 | PTCARENOTE ---
Prado removed at 1130 - pt is yet to void. OOB w/ PT using heel relief boot - pt needs significant amount of assistance transferring from bed to bedside commode. Pt incontinent of small amount of loose/brown stool - sample sent to lab for cdiff
testing.
--- NOTE | 2024-09-05 15:26 | W.PN.UPDATE ---
Update Note
Progress Note Update
Therapy evaluation is recommending longterm facility placement--we will not discharge the patient today until final decisions with family will be obtained
Still evaluating whether or not diarrhea is present and successful trial of voiding after Prado removal
[2024-09-05 17:40] LABS: Glucose - Point of Care 172 mg/dl (70-99)
[2024-09-05] MEDS: NOVOLOG FLEXPEN-LOW RESISTANCE 1 UNITS SC (17:59)
[2024-09-05] MEDS: LIPITOR 40 MG PO (21:35)
[2024-09-05 21:36] LABS: Glucose - Point of Care 171 mg/dl (70-99)
--- NOTE | 2024-09-05 23:05 | W.PN.UPDATE ---
Update Note
Progress Note Update
Patient unable to void after bill removed. Bladder scanned for >400 mls, attempted to sit on BSC to void but unable. Order placed to reinsert bill.
--- NOTE | 2024-09-05 23:21 | PTCARENOTE ---
2024 Pt has not voided. Bladder scanned for 369ml. Pt states 'I don't feel like I have to go.'
2139 Pt has not voided. Bladder scanned for 454ml. Pt denies need to urinate. Assisted to bsc x2 assist with RW. Pt had medium sized bm with very little urine output. Pt states 'I only went a few drops. I feel like I have to go but can't.' Luz
[facility] COPEL[facility] notified, bill ordered. 16F bill placed without issue. Drained 400ml of yellow urine.
[2024-09-06 03:12] VITALS: BP 133/57
[2024-09-06 05:41] VITALS: BMI 37.6
[2024-09-06] MEDS: SYNTHROID 125 MCG PO (05:50)
[2024-09-06 07:29] VITALS: BP 104/53
[2024-09-06] MEDS: PRANDIN 0.5 MG PO (07:33)
[2024-09-06] MEDS: NEURONTIN 400 MG PO ×2 (07:33→21:29)
[2024-09-06] MEDS: FLOMAX 0.4 MG PO (07:33)
[2024-09-06] MEDS: AUGMENTIN 875 MG/125 MG 1 TABLET PO ×2 (07:33→19:27)
[2024-09-06] MEDS: LASIX 40 MG PO (07:33)
[2024-09-06] MEDS: TYLENOL 650 MG PO ×2 (07:33→21:29)
[2024-09-06] MEDS: TOPROL XL 25 MG PO (07:33)
[2024-09-06] MEDS: LANTUS 0.24 UNITS SC (07:34)
[2024-09-06] MEDS: HEPARIN 5000 UNITS SC ×2 (07:34→19:28)
[2024-09-06] MEDS: ASPIR LOW (ENTERIC COATED) 81 MG PO (07:34)
[2024-09-06] MEDS: DESENEX/MITRAZOL/ZEASORB 1 APPLIC TOPICAL ×2 (07:35→19:28)
[2024-09-06] MEDS: HYDROPHOR 1 APPLIC TOPICAL (07:35)
[2024-09-06] MEDS: NOVOLOG FLEXPEN-LOW RESISTANCE SC ×3 (07:35→12:47)
[2024-09-06] MEDS: TIMOPTIC 0.5% OPHTHALMIC SOLUTION 1 DROP BOTH EYES (07:36)
[2024-09-06 08:28] LABS: Hematocrit 32.2 % (37.0-47.0); Hemoglobin 10.7 g/dL (12.0-16.0); Mean Corp Hgb Conc. 33.2 g/dL (33.0-37.0); Mean Corpuscular Hgb 29.4 pg (27.0-31.0); Mean Corpuscular Volume 88.5 fL (81.0-99.0); Mean Platelet Volume 8.9 fL (7.4-10.4); Platelet Count 278 10^3/uL (130-400); Red Blood Cell Count 3.64 10^6/uL (4.20-5.40); Red Cell Dist. Width 14.1 % (11.5-14.5); White Blood Cell Count 8.1 10^3/uL (4.8-10.8)
[2024-09-06 08:36] LABS: Glucose - Point of Care 109 mg/dl (70-99)
[2024-09-06 08:49] LABS: Blood Urea Nitrogen 32 mg/dl (7-17); Calcium 9.1 mg/dl (8.4-10.2); Carbon Dioxide 28 mmol/L (22-30); Chloride 100 mmol/L (98-107); Estimated Creatinine Clearance 40 ml/min; Glucose 98 mg/dl (70-99); Magnesium 1.9 mg/dl (1.6-2.3); Potassium 3.8 mmol/L (3.5-5.1); Sodium 137 mmol/L (135-145); eGFR 49.86
[2024-09-06 11:31] VITALS: BP 103/53
--- NOTE | 2024-09-06 12:35 | CM ---
CM following re: discharge planning.
PT and OT updated notes noted - SNF level of care recommended.
CM discussed it with the pt, pt expressed her agreement and she asked to call her daughter Sydni to discuss options of SNFs.
IMM reviewed, placed on chart, pt has a copy.
CM spoke to pt's daughter Sydni and she requested following SNFs: [facility], [facility], [facility]F. A referral to above SNFs made. Awaiting for determinations.
D/C plan: preferred SNF.
CM will follow to assist pt with discharge to a preferred SNF.
[2024-09-06 12:49] LABS: Glucose - Point of Care 104 mg/dl (70-99)
--- NOTE | 2024-09-06 13:08 | W.PN.HOSP.TC ---
Today's Communication/Plan
-
Imodium
keep bill and flomax
SNF
Assessment / Plan
Assessment / Plan
pt is an 84 year old female
spoke with daughter--no discharge, failed PT and voiding trial--plan now for SNF
Right leg infected wound/cellulitis due to diabetes with neuropathy--failed outpt ABX--apprec podiatry--MRI neg for osteo--changing vanco/zosyn to augmentin to complete 14 day course total--Ultrasound negative for DVT--apprec ID-- cultures neg
--apprec wound care
diarrhea --once--do not suspect C. diff, C. diff negative--likely from augmentin--imodium
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
Type 2 diabetes with hyperglycemia/gastroparesis/neuropathy--cont insulin, SSI, gabapentin--restart oral meds
Anemia of chronic disease--Hemoglobin stable at 11.6--No active bleeding
CKD stage IIIb--Creatinine 1.3--renal dose meds
Hypothyroidism--Levothyroxine continued
Hyperlipidemia--Lipitor
History of congestive heart failure with preserved EF--no exacerbation--Lasix from home continued--Strict I/O, daily weight
Essential Hypertension--Metoprolol continued
Morbid Obesity due to excess calories-- Affects all aspects of care�- Encourage healthy diet and activity as able with goal of weight loss.
Ambulatory Dysfunction/Wheelchair Bound--Likely multifactorial with DDD/multiple prior back surgeries, morbid obesity, neuropathy, etc.�- PT/OT evaluations during stay--recommending SNF
Severe aortic stenosis
DVT Proph--heparin sq
CODE status--DNR
Anticipated Discharge: 24 - 48 hours
Subjective/Interval History
-
Date of Service: September 06, 2024
pt c/o diarrhea
Objective Data
-
Labs:
Laboratory Results
09/06/24
08:22
WBC 8.1
Hgb 10.7 L
Hct 32.2 L
Plt Count 278
Sodium 137
Potassium 3.8
Chloride 100
Carbon Dioxide 28
BUN 32 H
Creatinine 1.1 H
Glucose 98
Calcium 9.1
Vital Signs:
max temp for 24 hours
09/05/24
23:01
Temp 98.1 F
Vital Signs
Temp Pulse Resp BP Pulse Ox
97.8 F 68 20 103/53 95
09/06/24 11:31 09/06/24 11:31 09/06/24 11:31 09/06/24 11:31 09/06/24 11:31
I&O
09/05/24 09/06/24 09/07/24
06:59 06:59 06:59
Intake Total 480 / 480
Output Total 1750 / 1750 1000 / 1000
Balance -1270 / -1270 -1000 / -1000
Review of Systems
-
All other systems: Reviewed and negative
Physical Exam
-
General: Well Developed, Well Nourished and No Apparent Distress
HEENT: Normocephalic and Atraumatic
Respiratory: Clear to Auscultation; Negative Wheezes
Cardiac: Regular Rhythm and S1/S2; Negative Murmur
GI: Nontender, Nondistended and Normal Bowel Sounds
Genito-urinary: Bill
Musculoskeletal: No Clubbing, No Cyanosis and No Edema
Neuro: Awake
Psych: Calm
[2024-09-06] MEDS: IMODIUM 2 MG PO ×2 (13:21→19:27)
[2024-09-06 15:56] VITALS: BP 109/53
[2024-09-06 16:44] LABS: Glucose - Point of Care 154 mg/dl (70-99)
[2024-09-06] MEDS: NOVOLOG FLEXPEN-LOW RESISTANCE 1 UNITS SC (17:22)
--- NOTE | 2024-09-06 18:10 | PTCARENOTE ---
Pt still having loose stool. OOB to BSC several times today - heavy assist x 1 w/ RW. Prado output tonight now blood tinged w/ sediment.
[2024-09-06 19:00] VITALS: BP 111/55
[2024-09-06] MEDS: LIPITOR 40 MG PO (21:29)
[2024-09-06] MEDS: ROBITUSSIN 100 MG PO (21:42)
[2024-09-06 21:52] LABS: Glucose - Point of Care 176 mg/dl (70-99)
--- NOTE | 2024-09-06 21:54 | W.PN.UPDATE ---
Update Note
Progress Note Update
Called to evaluate patient for pink tinged urine draining to bill bag. On evaluation, patient with no complaints of abdominal pain, no tenderness to palpation, no distention noted. Bill draining dark pink colored urine, no clots seen. AM labs
ordered. Consider Urology consult.
[2024-09-06 23:00] VITALS: BP 114/47
[2024-09-07 03:00] VITALS: BP 120/61
[2024-09-07 06:00] VITALS: BMI 37.6
[2024-09-07] MEDS: SYNTHROID 125 MCG PO (06:05)
[2024-09-07 07:26] VITALS: BP 97/69
[2024-09-07] MEDS: TYLENOL 650 MG PO ×2 (07:30→16:39)
[2024-09-07] MEDS: AUGMENTIN 875 MG/125 MG 1 TABLET PO (07:31)
[2024-09-07] MEDS: PRANDIN 0.5 MG PO (07:31)
[2024-09-07] MEDS: ASPIR LOW (ENTERIC COATED) 81 MG PO (07:31)
[2024-09-07] MEDS: LASIX 40 MG PO (07:32)
[2024-09-07] MEDS: DESENEX/MITRAZOL/ZEASORB 1 APPLIC TOPICAL (07:33)
[2024-09-07] MEDS: TOPROL XL 25 MG PO (07:33)
[2024-09-07] MEDS: NEURONTIN 400 MG PO (07:33)
[2024-09-07] MEDS: HEPARIN 5000 UNITS SC (07:34)
[2024-09-07] MEDS: HYDROPHOR 1 APPLIC TOPICAL (07:34)
[2024-09-07] MEDS: TIMOPTIC 0.5% OPHTHALMIC SOLUTION 1 DROP BOTH EYES (07:35)
[2024-09-07] MEDS: FLOMAX 0.4 MG PO (07:37)
[2024-09-07] MEDS: ROBITUSSIN 100 MG PO ×2 (07:41→16:39)
[2024-09-07] MEDS: IMODIUM 2 MG PO (07:41)
[2024-09-07] MEDS: TESSALON PERLES 100 MG PO (07:41)
[2024-09-07 08:50] LABS: Glucose - Point of Care 90 mg/dl (70-99)
--- NOTE | 2024-09-07 08:53 | W.PN.HOSP.TC ---
Today's Communication/Plan
-
dispo planning for SNF
Assessment / Plan
Assessment / Plan
pt is an 84 year old female
spoke with daughter--no discharge, failed PT and voiding trial--plan now for SNF
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
-failed outpt ABX
-apprec podiatry and ID
-MRI neg for osteo
-Ultrasound negative for DVT
-changing vanco/zosyn to augmentin to complete 14 day course total (today is day 5)
-appreciate wound care
diarrhea --once--do not suspect C. diff, C. diff negative--likely from augmentin--imodium
urinary retention--likely from neurogenic (neuropathy) bladder-- bill placed
-flomax started
-failed voiding trial, bill back in
Type 2 diabetes with hyperglycemia/gastroparesis/neuropathy--cont insulin, SSI, gabapentin--restart oral meds
Anemia of chronic disease--Hemoglobin stable at 11.6--No active bleeding
CKD stage IIIb--Creatinine 1.3--renal dose meds
Hypothyroidism--Levothyroxine continued
Hyperlipidemia--Lipitor
History of congestive heart failure with preserved EF--no exacerbation--Lasix from home continued--Strict I/O, daily weight
Essential Hypertension--Metoprolol continued
Morbid Obesity due to excess calories-- Affects all aspects of care�- Encourage healthy diet and activity as able with goal of weight loss.
Ambulatory Dysfunction/Wheelchair Bound--Likely multifactorial with DDD/multiple prior back surgeries, morbid obesity, neuropathy, etc.�- PT/OT evaluations during stay--recommending SNF
Severe aortic stenosis
DVT Proph--heparin sq
CODE status--DNR
Anticipated Discharge: Within 24 hours
Subjective/Interval History
-
Date of Service: September 07, 2024
awoken from sleep, no acute complaints
Objective Data
-
Labs:
Laboratory Results
09/07/24
06:00
WBC Pending
Hgb Pending
Hct Pending
Plt Count Pending
Sodium Pending
Potassium Pending
Chloride Pending
Carbon Dioxide Pending
BUN Pending
Creatinine Pending
Glucose Pending
Calcium Pending
Vital Signs:
Vital Signs
Temp Pulse Resp BP Pulse Ox
97.8 F 76 22 97/69 97
09/07/24 07:26 09/07/24 07:33 09/07/24 07:26 09/07/24 07:33 09/07/24 07:26
I&O
09/06/24 09/07/24 09/08/24
06:59 06:59 06:59
Intake Total 720 / 720
Output Total 1000 / 1000 1100 / 1100
Balance -1000 / -1000 -380 / -380
Review of Systems
-
History Source: Patient
All other systems: Reviewed and negative
Physical Exam
-
General: Well Developed, Well Nourished and No Apparent Distress
HEENT: Normocephalic and Atraumatic
Respiratory: Clear to Auscultation; Negative Wheezes
Cardiac: Regular Rhythm and S1/S2; Negative Murmur
GI: Nontender, Nondistended and Normal Bowel Sounds
Genito-urinary: Bill
Musculoskeletal: No Clubbing, No Cyanosis, No Edema and Other (right foot in boot, left heel with gauze c/d/i)
Neuro: Awake
Psych: Calm
Data Reviewed
-
Diagnostic Radiology: Report Reviewed by me
Labs: Labs Reviewed by me
[2024-09-07] MEDS: NOVOLOG FLEXPEN-LOW RESISTANCE SC ×2 (08:58→12:56)
[2024-09-07] MEDS: LANTUS 0.24 UNITS SC (09:12)
[2024-09-07 10:10] LABS: Hematocrit 33.4 % (37.0-47.0); Mean Corp Hgb Conc. 32.9 g/dL (33.0-37.0); Mean Corpuscular Hgb 29.6 pg (27.0-31.0); Mean Corpuscular Volume 89.8 fL (81.0-99.0); Mean Platelet Volume 9.2 fL (7.4-10.4); Platelet Count 292 10^3/uL (130-400); Red Blood Cell Count 3.72 10^6/uL (4.20-5.40); Red Cell Dist. Width 14.2 % (11.5-14.5); White Blood Cell Count 7.9 10^3/uL (4.8-10.8)
--- NOTE | 2024-09-07 10:16 | CM ---
Addendum entered by Swathi Samuel 09/07/24 15:36:
4:45 transport - notified Maggie at [facility].
Addendum entered by Swathi Samuel 09/07/24 12:47:
corrected report #: [id number]
transportation forms on chart. Maggie from [facility] request after 4pm
Addendum entered by Swathi Samuel 09/07/24 12:08:
tt from hospitalist - stable for discharge
Spoke with Maggie from [facility] - bed available today
Daughter Echo agreeable
no auth needed
tt hospitalist for COVID test to be ordered ([facility] protocol)
PLAN: [facility] SN[facility]
Report #: [id number]
Fax #: [phone]
Original Note:
Patient seen bedside
dx: RLE cellulitis/wound
per nsg failed void trial-bill
Urology consult
PT rec SNF
Spoke with darvin Dodge
Referrals in [facility] for [place], [facility], [place]
no pre-auth
PLAN: SNF, pending bed availability when medically stable
[2024-09-07 10:30] VITALS: BP 121/56
[2024-09-07 11:06] LABS: Blood Urea Nitrogen 28 mg/dl (7-17); Calcium 9.1 mg/dl (8.4-10.2); Carbon Dioxide 27 mmol/L (22-30); Chloride 100 mmol/L (98-107); Estimated Creatinine Clearance 40 ml/min; Glucose 110 mg/dl (70-99); Magnesium 1.8 mg/dl (1.6-2.3); Potassium 3.9 mmol/L (3.5-5.1); Sodium 137 mmol/L (135-145); eGFR 49.86
[2024-09-07 11:25] VITALS: BP 94/41
--- NOTE | 2024-09-07 12:09 | W.DS.TRANS ---
DC Summary - Senior [employer]
-
Discharge Instructions:
Sleep Apnea Risk Intermediate
Discharge Diagnosis/Procedures Right lower extremity cellulitis, urinary
retention
Diet Diabetic, Carb Controlled
Activity As tolerated
Driving Restrictions As prior to admission
Bathing Restrictions None
Other Services OT,PT
Instructions:
Stand-Alone Forms:
Changes to Home Medications: Yes
Discharge Medications:
DC Medications w/original date entered in [employer]
acetaminophen 500 mg tablet 1,000 mg PO BID Pain 04/17/23
aspirin 81 mg tablet,delayed release 81 mg PO DAILY Blood Clot Prevention/Tx 04/17/23
levothyroxine 125 mcg tablet 125 mcg PO DAILY Thyroid 04/17/23
timolol maleate 0.5 % eye drops 1 drp BOTH EYES DAILY Eye Condition 04/17/23
furosemide 40 mg tablet (Lasix) 40 mg PO DAILY #30 tabs 04/20/23
metoprolol succinate 25 mg tablet,extended release 24 hr 25 mg PO DAILY Heart disease/condition #1 tab 05/18/23
insulin glargine 100 unit/mL (3 mL) subcutaneous pen (Basaglar KwikPen U-100 Insulin) 24 unit SC DAILY 01/29/24
atorvastatin 40 mg tablet (Lipitor) 40 mg PO HS 09/02/24
gabapentin 400 mg capsule 400 mg PO HS 09/02/24
repaglinide 0.5 mg tablet 0.5 mg PO DAILY 09/02/24
amoxicillin 875 mg-potassium clavulanate 125 mg tablet 1 tab PO Q12 #19 tabs 09/07/24
gabapentin 400 mg capsule 400 mg PO DAILY #30 caps 09/07/24
loperamide 2 mg capsule 2 mg PO Q4HPRN PRN diarrhea #10 caps 09/07/24
miconazole nitrate 2 % topical powder (Miconazorb AF) 1 applic topical BID #85 grams 09/07/24
tamsulosin 0.4 mg capsule 0.4 mg PO DAILY #30 caps 09/07/24
white petrolatum 42 % topical ointment (Hydrophor) 1 applic topical DAILY #100 grams 09/07/24
Home Medication Changes
Decrease Gabapentin from 800mg in mornings to 400mg in mornings given kidney function.
You are newly started on Flomax to help treat urinary retention. Follow up as outpatient with Urology.
Complete Augmentin course as prescribed, you have 19 more doses to complete a 2 week course
Pending Results: No
[2024-09-07 12:10] VITALS: BP 110/39; PULSE 66; O2SAT 94
--- NOTE | 2024-09-07 12:32 | W.DCSUMMARY ---
Discharge Summary
Discharge Data
Date of Admission: 09/02/24
Date of Discharge: 09/07/24
-
Pending Results: No
Hospital Course
Discharging Physician : Dr. Sofya Alex
Disposition : SNF
Primary care physician : Dr. Lidya Vargas
Principal Discharge diagnosis : Cellulitis, Urinary Retention
Hospital Course :
Ms. Lolis Brandon is a 84 yo woman with hx f hypertension, hyperlipidemia, CAD, CHF, aortic stenosis, diabetes, hypothyroidism who presents to the emergency room for evaluation of redness and swelling of the right lower extremity as well as a
wound on her right medial foot. Triage vitals stable. Labs without leukocytosis. LE US without DVT. She was admitted to medicine with Podiatry and ID consulting for treatment of RLE cellulitis and infected wound.
MRI obtained, negative for Osteomyelitis. She was started on IV Vanc/Zosyn then transitioned to oral Augmentin per ID recs with plans to complete a 2 week course as outpatient.
Hospital course complicated by urinary retention and she failed first voiding trial. [place] replaced. Patient is started on Flomax and referred to Urology as outpatient.
She is discharged to SNF
Time spent on discharge was 31 minutes.
Important imaging findings :
MRI LE 09/02/24
IMPRESSION:
1. SEVERE DIFFUSE CELLULITIS throughout the right foot and ankle.
2. No MRI evidence for acute osteomyelitis or abscess.
3. Severe acute on chronic muscle denervation secondary to diabetes mellitus.
4. Chronic avulsion fractures of the medial malleolus.
5. Moderate osteoarthritis of the talonavicular joint.
6. Mild osteoarthritis of the tibiotalar and posterior subtalar joint.
7. Severe chronic plantar fasciitis.
Extremity Arterial Study
IMPRESSION:
1. Right ankle-brachial index 0.62, right toe brachial index 0.48. Scattered arterial plaque without significant large vessel stenosis demonstrated. Infrapopliteal disease is suspected based on spectral Doppler waveform analysis.
2. Left ankle brachial index 1.18, left toe brachial index 0.64. Scattered arterial plaque without focal large vessel stenosis demonstrated. Spectral Doppler waveform is suggestive of infrapopliteal disease. Pressure differential between the
posterior tibial and dorsalis pedis arteries is also suggestive of infrapopliteal disease.
Procedure findings :
Discharge Plan
-
Patient Disposition: Penitentiary[facility]SNF
Discharge Diagnosis/Procedures: Right lower extremity cellulitis, urinary retention
Diet: Diabetic, Carb Controlled
Activity: As tolerated
Driving Restrictions: As prior to admission
Bathing Restrictions: None
Other Services: PT and OT
Activity Restrictions/Additional Instructions:
Wound Care Instructions Right Medial Foot and Groin Wound- Clean with normal saline or soap and water. Cover with honey gel and adaptic foam. Change Q 48 hours and PRN if loose or soiled.
Keep right heel off-loaded with fiber filled boot, as recommended by Podiatry
Follow up with your radial saw operator
Mineral oil to excoriated skin on shoulders -avoid scratching
Keep left heel off-loaded with air cushion or pillow under calves
Referrals:
Lidya Vargas MD [Family Provider] - in less than 1 week
Milton Villalta MD [Active] - in one to two weeks (Urinary retention in hospital)
Additional Discharge Medication Instructions: Decrease Gabapentin from 800mg in mornings to 400mg in mornings given kidney function.
You are newly started on Flomax to help treat urinary retention. Follow up as outpatient with Urology.
Complete Augmentin course as prescribed, you have 19 more doses to complete a 2 week course
Prescriptions:
New
miconazole nitrate [Miconazorb AF] 2 % Powder
1 applic topical BID Qty: 85 0RF
amoxicillin-pot clavulanate 875-125 mg Tablet
1 tab PO Q12 Qty: 19 0RF
gabapentin 400 mg Capsule
400 mg PO DAILY Qty: 30 0RF
tamsulosin 0.4 mg Capsule
0.4 mg PO DAILY Qty: 30 0RF
white petrolatum [Hydrophor] 42 % Ointment
1 applic topical DAILY Qty: 100 0RF
loperamide 2 mg Capsule
2 mg PO Q4HPRN PRN (Reason: diarrhea) Qty: 10 0RF
Continued
aspirin 81 mg Tablet,Delayed Release (Dr/Ec)
81 mg PO DAILY
acetaminophen 500 mg Tablet
1,000 mg PO BID
levothyroxine 125 mcg tablet
125 mcg PO DAILY
timolol maleate 0.5 % drops
1 drp BOTH EYES DAILY
furosemide [Lasix] 40 mg tablet
40 mg PO DAILY Qty: 30 0RF
metoprolol succinate 25 mg Tablet Extended Release 24 Hr
25 mg PO DAILY Qty: 1 0RF
insulin glargine [Basaglar KwikPen U-100 Insulin] 100 unit/mL (3 mL) Insulin Pen
24 unit SC DAILY
atorvastatin [Lipitor] 40 mg Tablet
40 mg PO HS
repaglinide 0.5 mg Tablet
0.5 mg PO DAILY
gabapentin 400 mg Capsule
400 mg PO HS
Discontinued
gabapentin 400 mg capsule
800 mg PO DAILY
cephalexin 500 mg Capsule
500 mg PO Q8H
loperamide [Imodium] 2 mg Capsule
2 mg PO Q4H PRN (Reason: diarrhea)
Discharge Orders:
Discharge Patient (As Directed); Ordered 09/07/24
Ordered By: Sofya Alex
Discharge Date and Time
Discharge Date/Time: 09/07/24 17:00
Print Language: [id number]
[2024-09-07 12:49] LABS: COVID-19 Antigen Negative (Negative)
[2024-09-07 12:53] LABS: Glucose - Point of Care 109 mg/dl (70-99)
[2024-09-07 15:23] VITALS: BP 107/58
== END 2024-09-07 17:00 | DRG 638 ==
LOC: 1 ACUTE 16:05
PROVIDERS: Internal Medicine; Nurse Practitioner Gerontology; Registered Nurse; ADMITTING PHYSICIAN Hospitalist; ATTENDING PHYSICIAN Student in an Organized Health Care Education/Training Program; CONSULT PHYSICIAN Student in an Organized Health Care Education/Training Program; EMERGENCY PHYSICIAN Emergency Medicine; FAMILY PHYSICIAN Family Medicine; OTHER PHYSICIAN Student in an Organized Health Care Education/Training Program
DX: E11.628 Type 2 diabetes mellitus with other skin complications (principal); I13.0 Hypertensive heart and chronic kidney disease with heart failure and stage 1 through stage 4 chronic kidney disease, or unspecified chronic kidney disease; L03.115 Cellulitis of right lower limb; L97.511 Non-pressure chronic ulcer of other part of right foot limited to breakdown of skin; I50.32 Chronic diastolic (congestive) heart failure; K52.1 Toxic gastroenteritis and colitis; Z66 Do not resuscitate; D63.1 Anemia in chronic kidney disease; E03.9 Hypothyroidism, unspecified; E11.22 Type 2 diabetes mellitus with diabetic chronic kidney disease; E11.42 Type 2 diabetes mellitus with diabetic polyneuropathy; E11.621 Type 2 diabetes mellitus with foot ulcer; I25.5 Ischemic cardiomyopathy; I25.10 Atherosclerotic heart disease of native coronary artery without angina pectoris; N18.32 Chronic kidney disease, stage 3b; I35.0 Nonrheumatic aortic (valve) stenosis; E78.5 Hyperlipidemia, unspecified; E66.01 Morbid (severe) obesity due to excess calories; M72.2 Plantar fascial fibromatosis; I95.9 Hypotension, unspecified; M19.071 Primary osteoarthritis, right ankle and foot; E11.43 Type 2 diabetes mellitus with diabetic autonomic (poly)neuropathy; K31.84 Gastroparesis; E11.65 Type 2 diabetes mellitus with hyperglycemia; N31.9 Neuromuscular dysfunction of bladder, unspecified; R33.8 Other retention of urine; T36.0X5A Adverse effect of penicillins, initial encounter; Z68.37 Body mass index [BMI] 37.0-37.9, adult; Z11.52 Encounter for screening for COVID-19; Z99.3 Dependence on wheelchair; Z79.890 Hormone replacement therapy; Z79.4 Long term (current) use of insulin; Z79.82 Long term (current) use of aspirin; Z79.899 Other long term (current) drug therapy
CPT/HCPCS: 73620; 73718; 80048; 80053; 81003; 82962; 83036; 83605; 83735; 83880; 85025; 85027; 85652; 86140; 87040; 87324; 87449; 87811; 93922; 93925; 93970; 96365; 96375; 97110; 97163; 97166; 97530; 97535; 99284